=== PATIENT | male | born 1980 | race Caucasian/White ===

== ENCOUNTER 2020-09-12 07:30 | Emergency (ER) | payer SELFPAY ==
[~2020-09-12] VITALS: Ht 175.3 cm; Wt 84.1 kg
[~2020-09-12 07:30] MED LIST: NO HOME MEDICATIONS; PERCOCET 325 MG1 TA2 PO
[2020-09-12 07:37] VITALS: TEMP 97.7
[2020-09-12] MEDS ORDERED: AMOXICILLIN 8751 TAB PO ×2 (07:42→08:07)
[2020-09-12 08:25] VITALS: BP 180/120; PULSE 67
== END 2020-09-12 08:25 | disposition home or self-care (01) ==
LOC: COL.ER 07:30
DX: K08.89 Other specified disorders of teeth and supporting structures (principal); F17.210 Nicotine dependence, cigarettes, uncomplicated

== ENCOUNTER 2023-01-21 11:02 | Inpatient (IN) | payer BC ==
[2023-01-21] VITALS (448 sets, daily range): BP systolic 162–178; BP diastolic 94–126; PULSE 66–85; TEMP 98.4–98.6; O2SAT 88–99
[~2023-01-21] VITALS: Ht 177.8 cm; Wt 86.4 kg
[~2023-01-21 11:02] MED LIST changes: +AMOXICILLIN 8751 TAB PO
[2023-01-21] MEDS ORDERED: AMOXICILLIN 50500 MG PO (11:45)
[2023-01-21] MEDS ORDERED: NORCO 325 MG-51 TAB PO (11:45)
[2023-01-21 13:41] LABS: BASO % 0.4 % (0.0-2.0); EOS # 0.2 K/mm3 (0.0-0.7); EOS % 3.2 % (0.0-4.0); GRAN # 4.8 K/mm3 (1.4-6.5); GRAN % 63.5 % (42.2-75.2); HEMATOCRIT 43.7 % (42.0-52.0); HEMOGLOBIN 15.3 g/dl (13.5-18.0); LYMPH # 1.9 K/mm3 (1.2-3.4); LYMPH % 24.7 % (20.0-51.0); MEAN CELL VOLUME 89 fl (80.0-100.0); MEAN CORPUSCULAR HEMOGLOBIN 31 pg (27-31); MEAN CORPUSCULAR HGB CONC 35 g/dl (33.0-37.0); MEAN PLATELET VOLUME 8.5 fl (7.4-10.4); MONO # 0.6 K/mm3 (0.1-0.6); MONO % 8.1 % (1.7-9.3); PLATELET COUNT 231 K/mm3 (130-400); RED BLOOD COUNT 4.92 M/mm3 (4.20-5.60)
[2023-01-21 14:01] LABS: ALANINE AMINOTRANSFERASE 18 U/L (0-55); ALBUMIN 3.8 gm/dL (3.5-5.0); ALKALINE PHOSPHATASE 85 U/L (40-150); ANION GAP 8 mmol/L (7-16); AST,SGOT 13 U/L (5-34); BILIRUBIN,TOTAL 0.2 mg/dL (0.2-1.2); BLOOD UREA NITROGEN 12 mg/dL (9-21); CALCIUM 8.9 mg/dL (8.4-10.2); CARBON DIOXIDE 22 mmol/L (22-29); CHLORIDE 106 mmol/L (98-107); GLUCOSE 102 mg/dL (70-99); POTASSIUM 4.5 mmol/L (3.5-4.5); SODIUM 136 mmol/L (136-145)
[2023-01-21 14:09] LABS: TROPONIN-I < 0.010 ng/mL (0.00-0.033)
[2023-01-21 15:05] LABS: CHOLESTEROL RISK RATIO 3.6
[2023-01-22] VITALS (681 sets, daily range): BP systolic 125–154; BP diastolic 87–105; PULSE 65–93; TEMP 98.2–98.8; O2SAT 83–100
[2023-01-22 05:25] LABS: HEMATOCRIT 50.9 % (42.0-52.0); MEAN CELL VOLUME 90 fl (80.0-100.0); MEAN CORPUSCULAR HGB CONC 34 g/dl (33.0-37.0); MEAN PLATELET VOLUME 9.8 fl (7.4-10.4); RED BLOOD COUNT 5.63 M/mm3 (4.20-5.60)
[2023-01-22 05:32] LABS: HEMOGLOBIN 17.3 g/dl (13.5-18.0); MEAN CORPUSCULAR HEMOGLOBIN 31 pg (27-31); PLATELET COUNT 91 K/mm3 (130-400)
[2023-01-22 05:47] LABS: ALBUMIN 3.8 gm/dL (3.5-5.0); CALCIUM 9.2 mg/dL (8.4-10.2); CREATININE, serum 0.89 mg/dL (0.72-1.25); PHOSPHOROUS 4.5 mg/dL (2.3-4.7); POTASSIUM 4.2 mmol/L (3.5-4.5)
--- NOTE | 2023-01-22 07:00 | NUR ---
PT STABLE. ON AND OFF CARDIZEM DRIP. BP GOAL 160/100. IV L SHOULDER. NO SIGN OF DISTRESS AT THIS TIME. PLAN FOR ECHO TODAY.
--- NOTE | 2023-01-22 09:00 | NUR ---
PT VOIDING WITHOUT DIFFICULTY PER URINAL. UDS COLLECTED AND SENT. PT STATES LAST BM WAS 01/21.
[2023-01-22 09:57] LABS: TRICYCLIC ANTIDEPRESS URINE NEGATIVE
--- NOTE | 2023-01-22 10:11 | NUR ---
SW reviewed pt's clinical record and noted he was admitted for hypertensive emergency and jaw pain. SW met with pt @ his bedside after rounds this morning to complete initial intake. Pt was drowsy, but cooperative with the interview. He was oriented to person, time and place. Pt reports he is ambulatory without assistive devices and independent in his ADL's/IADL's. He works fulltime at the [employer] @ [facility], and shares a home with his GF, Tati Birch, and two children, ages 18 and 16. Pt reports he would like to make his 18 yo dtr, Amanda, his HCPOA. He requested documents to review. SW presented pt with the advance planning paperwork and provided education on implementing the document. Pt's primary care provider is Dr. Ceasar Dye, ph# [phone] and he fills his prescriptions at [facility]. Pt drove himself to the ED and plans to drive himself home once medically clear for discharge. Per MD rounds, it's likely pt will be discharge home later today. No other concerns noted.
[2023-01-22] MEDS ORDERED: NORVASC 10MG10 MG PO (15:18)
[2023-01-22] MEDS ORDERED: ZESTRIL 5MG5 MG PO (15:19)
[2023-01-22] MEDS ORDERED: OMNICEF 300MG300 MG PO (15:25)
[2023-01-22] MEDS ORDERED: HCTZ12.5TAB PO (15:28)
--- NOTE | 2023-01-22 16:28 | NUR ---
PT DISCHARGED TO HOME. RESPIRATIONS EVEN AND UNLABORED. NO COMPLAINTS OF PAIN. NO SIGN OF DISTRESS AT TIME OF DISCHARGE. PT AMBULATORY.
== END 2023-01-22 16:13 | disposition home or self-care (01) | DRG 305 ==
LOC: COL.ER 11:02 → ICU 14:42
PROVIDERS: Family Medicine; Internal Medicine; ADMIT Internal Medicine
DX: I16.1 Hypertensive emergency (principal); N13.30 Unspecified hydronephrosis; I10 Essential (primary) hypertension; R51.9 Headache, unspecified; H54.3 Unqualified visual loss, both eyes; N20.0 Calculus of kidney; F15.99 Other stimulant use, unspecified with unspecified stimulant-induced disorder; R41.82 Altered mental status, unspecified; R68.84 Jaw pain
CPT/HCPCS: J0780; J1650; J1885; J7050; Q9967

== ENCOUNTER 2023-05-14 23:07 | Emergency (ER) | payer BC ==
[~2023-05-14] VITALS: Ht 177.8 cm; Wt 84.1 kg
[~2023-05-14 23:07] MED LIST changes: +AMOXICILLIN 50500 MG PO; +HCTZ12.5TAB PO; +NORCO 325 MG-51 TAB PO; +NORVASC 10MG10 MG PO; +OMNICEF 300MG300 MG PO; +ZESTRIL 5MG5 MG PO
[2023-05-14 23:29] VITALS: TEMP 98.1
[2023-05-15] MEDS ORDERED: Acetaminophen 325 MG TAB PO ONE (01:00)
[2023-05-15] MEDS ORDERED: Ibuprofen 400 MG TAB PO ONE (01:00)
[2023-05-15 01:33] VITALS: BP 160/91; PULSE 76
== END 2023-05-15 01:41 | disposition home or self-care (01) ==
LOC: COL.ER 23:07
DX: M25.511 Pain in right shoulder (principal)